=== PATIENT | male | born 1985 | race Caucasian/White ===

== ENCOUNTER 2016-11-16 10:02 | Emergency (ER) | payer OTHER ==
[~2016-11-16] VITALS: Ht 160 cm; Wt 74.2 kg
[~2016-11-16 10:02] MED LIST: FENTANYL1 EAC5 TD; KEFLEX500 MG PO; OXYCODONE HCL20 M1 PO
[2016-11-16] MEDS ORDERED: IBUPROFEN800 MG PO (11:20)
[2016-11-16 11:39] VITALS: BP 123/78
== END 2016-11-16 11:41 | disposition home or self-care (01) ==
LOC: EME 10:02
DX: M54.5 Low back pain (principal); G89.29 Other chronic pain; V47.1XXA Car passenger injured in collision with fixed or stationary object in nontraffic accident, initial encounter; Y92.488 Other paved roadways as the place of occurrence of the external cause; F17.200 Nicotine dependence, unspecified, uncomplicated
CPT/HCPCS: 99281; 99284

== ENCOUNTER 2018-02-08 16:30 | Emergency (ER) | payer OTHER ==
[~2018-02-08] VITALS: Ht 160 cm; Wt 68.4 kg
[~2018-02-08 16:30] MED LIST changes: +IBUPROFEN800 MG PO
[2018-02-08] MEDS ORDERED: NAPROXEN500 MG PO (17:52)
[2018-02-08 18:11] VITALS: BP 103/70
== END 2018-02-08 18:12 | disposition home or self-care (01) ==
LOC: EME 16:30
DX: S30.0XXA Contusion of lower back and pelvis, initial encounter (principal); W17.89XA Other fall from one level to another, initial encounter; M41.86 Other forms of scoliosis, lumbar region; M51.37 Other intervertebral disc degeneration, lumbosacral region
CPT/HCPCS: 72100; 99281; 99283